=== PATIENT | female | born 1995 | race Caucasian/White ===

== ENCOUNTER → 2018-06-11 | Outpatient (CLI) | payer SELFPAY ==
--- NOTE | 2018-06-11 15:23 | RADIOLOGY REPORT (SQ) ---
EXAM DESCRIPTION: U/S [id number] TRNABD 1GES W/ODOP COMPLETED DATE/TIME: 06/11/2018 2:29 pm REASON FOR STUDY: Z34.01 ENCNTR FOR SUPRVSN OF NORMAL FIRST PREG, FIRST TRIMESTER Z34.01 ENCNTR FOR SUPRVSN OF NORMAL FIRST PREG, FIRST TRIMES COMPARISON: None. TECHNIQUE: Transabdominal static and realtime grayscale images acquired of the pelvis. Additional se lected spectral and color Doppler images recorded. All images stored on PACs. bHCG: Not available. CLINICAL DATES: LMP 04/21/2018. 7 weeks 2 days. LIMITATIONS: None. FINDINGS: FETUS: Single Living intrauterine . ULTRASOUND EGA: 7 weeks 4 days. ULTRASOUND TOM: 01/24/2019 EFW: Not applicable less than 20 weeks. CRL: 1.3 cm. FHR: 145 beats per minute. SURVEY: Too early to assess. AMNIOTIC FLUID: Adequate amount. PLACENTA: Not yet developed due to early gestation. SUBCHORIONIC BLEED: No SIZE OF BLEED: Not applicable. UTERUS: No masses. No anomalies. CERVICAL LENGTH: 3.4 cm. Closed. RIGHT ADNEXA: Ovary not seen. No adnexal free fluid. No adnexal masses. LEFT ADNEXA: Ovary not seen. No adnexal free fluid. No adnexal masses. FREE FLUID: None. OTHER: No other significant finding. IMPRESSION: LIVING INTRAUTERINE . EGA 7 weeks 4 days. Trimester of : First - 0 to 13 weeks. TECHNICAL DOCUMENTATION: JOB ID: [id number] [employer]- All Rights Reserved Reading location - IP/workstation name: [email or web address]
== END ==
LOC: RAD 16:29
PROVIDERS: ATTEND Midwife
DX: Z34.01 Encounter for supervision of normal first pregnancy, first trimester (principal)
CPT/HCPCS: 76801

== ENCOUNTER 2019-01-18 12:03 | Outpatient (CLI) | payer MEDICAID ==
[2019-01-18 12:31] LABS: APPEARANCE,URINE CLOUDY; BILIRUBIN,URINE NEGATIVE (NEGATIVE); COLOR,URINE YELLOW; GLUCOSE, URINE NEGATIVE (NEGATIVE); KETONES,URINE NEGATIVE (NEGATIVE); LEUKOCYTE ESTERASE,URINE LARGE (NEGATIVE); NITRITE,URINE NEGATIVE (NEGATIVE); PROTEIN,URINE NEGATIVE (NEGATIVE); URINE SPECIFIC GRAVITY 1.006; UROBILINOGEN,URINE NEGATIVE mg/dL (<2.0)
[2019-01-18 12:54] LABS: URINE AMPHETAMINES SCREEN NEGATIVE; URINE BARBITURATES SCREEN NEGATIVE; URINE BENZODIAZEPINES SCREEN NEGATIVE; URINE COCAINE SCREEN NEGATIVE; URINE MARIJUANA (THC) SCREEN NEGATIVE; URINE METHADONE SCREEN NEGATIVE; URINE PHENCYCLIDINE SCREEN NEGATIVE
--- NOTE | 2019-01-18 13:03 | Non Stress Test Report ---
Non Stress Test Datetime Report Generated by CPN: 01/18/2019 13:02 DEMOGRAPHIC EGA NST: 39.1 INDICATION Indication for Study: Other - Please document "Reason for NST Other" in box below. Indication for Study (NST) Other: labor check- suspected rupture of membranes VITAL SIGNS Temperature - NST: 98.6 Pulse - NST: 84 RESP - NST: 18 NBPSYS NST: 134 NBPDIA NST: 82 MONITORING Monitor Explained: Monitor Explained; Test Explained; Patient Verbalized Understanding Time on Monitor: 01/18/2019 12:16 Time off Monitor: 01/18/2019 12:50 NST Duration: 34 NST INTERVENTIONS NST Interventions: None Physician Notified NST: J. Akhtar, CNM BABY A: [id number] BABY A Movement : Present Contraction Frequency : 0 FHR Baseline : 145 Accelerations : 15X15 Decelerations : None Variability : Moderate 6-25bpm NST Review: Meets Criteria for Reactive NST NST Review and Verified By : López Galeano RN NST Results: Reactive NST REPORT Report Trigger: Send Report
== END 2019-01-18 12:59 | disposition home or self-care (01) ==
LOC: LC 12:03
PROVIDERS: ATTEND Student in an Organized Health Care Education/Training Program
PROC: 4A1HXCZ Monitoring of Products of Conception, Cardiac Rate, External Approach (ICD-10-PCS; principal; 2019-01-18)
DX: O47.1 False labor at or after 37 completed weeks of gestation (principal); Z3A.39 39 weeks gestation of pregnancy
CPT/HCPCS: 59025; 80307; 81005; 84112

== ENCOUNTER 2019-01-22 04:02 | Inpatient (IN) | payer MEDICAID ==
[2019-01-22 04:36] LABS: APPEARANCE,URINE SLIGHTLY-CLOUDY; BILIRUBIN,URINE NEGATIVE (NEGATIVE); COLOR,URINE YELLOW; GLUCOSE, URINE NEGATIVE (NEGATIVE); KETONES,URINE NEGATIVE (NEGATIVE); LEUKOCYTE ESTERASE,URINE MODERATE (NEGATIVE); NITRITE,URINE NEGATIVE (NEGATIVE); PROTEIN,URINE NEGATIVE (NEGATIVE); URINE SPECIFIC GRAVITY 1.014; UROBILINOGEN,URINE NEGATIVE mg/dL (<2.0)
[2019-01-22 04:55] LABS: URINE AMPHETAMINES SCREEN NEGATIVE; URINE BARBITURATES SCREEN NEGATIVE; URINE BENZODIAZEPINES SCREEN NEGATIVE; URINE COCAINE SCREEN NEGATIVE; URINE MARIJUANA (THC) SCREEN NEGATIVE; URINE METHADONE SCREEN NEGATIVE; URINE PHENCYCLIDINE SCREEN NEGATIVE
[2019-01-22 05:36] LABS: ABSOLUTE BASOPHILS # (AUTO) 0.1 10^3/uL (0.0-0.2); ABSOLUTE EOSINOPHILS # (AUTO) 0.1 10^3/uL (0.0-0.6); ABSOLUTE LYMPHOCYTES (AUTO) 2.2 10^3/uL (0.5-4.7); ABSOLUTE MONOCYTES (AUTO) 1.2 10^3/uL (0.1-1.4); ABSOLUTE NEUT (AUTO) 10.9 10^3/uL (1.7-8.2); BASOPHILS % (AUTO) 0.4 % (0-2); HEMATOCRIT 39.2 % (36.0-47.0); HEMOGLOBIN 13.2 g/dL (12.0-15.5); LYMPHOCYTES % (AUTO) 14.9 % (13-45); MEAN CORPUSCULAR HEMOGLOBIN 32.1 pg (27.0-33.4); MEAN CORPUSCULAR HGB CONC 33.7 g/dL (32.0-36.0); MEAN CORPUSCULAR VOLUME 95 fl (80-97); PLATELET COUNT 238 10^3/uL (150-450); RED BLOOD COUNT 4.12 10^6/uL (3.72-5.28); RED CELL DISTRIBUTION WIDTH 13.1 % (11.5-14.0); SEGMENTED NEUTROPHILS % (AUTO) 75.7 % (42-78); TOTAL CELLS COUNTED % (AUTO) 100 %; WHITE BLOOD COUNT 14.4 10^3/uL (4.0-10.5)
[2019-01-22] MEDS ORDERED: OXYTOCIN/NORMAL SALINE 20 UNIT/1,000 ML RTUINJ IV PRN ×2 (06:56→22:28)
[2019-01-22] MEDS ORDERED: RINGERS SOLUTION,LACTATED 1,000 ML IV ONE (07:30)
[2019-01-22] MEDS ORDERED: CEFAZOLIN INJ 1 GM VIAL ONE ×3 (07:31→19:01)
[2019-01-22] MEDS ORDERED: OXYTOCIN 10 UNIT/ML VIAL ONE (07:41)
[2019-01-22] MEDS ORDERED: MISOPROSTOL 0.2 MG TABLET ONE (07:41)
[2019-01-22] MEDS ORDERED: LIDOCAINE 1% INJ-PF (10 MG/ML) 30 ML SDV ONE (07:42)
[2019-01-22] MEDS ORDERED: OXYTOCIN/NORMAL SALINE 20 UNIT/1,000 ML RTUINJ ONE (07:42)
[2019-01-22] MEDS ORDERED: FENTANYL/BUPIVACAINE/NS/PF 300 MCG/150 ML RTUINJ EPI ONE (07:43)
[2019-01-22] MEDS ORDERED: FENTANYL CITRATE INJ/PF 100 MCG/2 ML AMPUL ONE (07:43)
[2019-01-22] MEDS ORDERED: BUPIVACAINE HCL 0.25 % INJ/PF (2.5 MG/1 ML) 30 ML VIAL ONE (07:43)
[2019-01-22] MEDS ORDERED: PHENYLEPHRINE HCL INJ/PF 10 MG/1 ML SDV ONE (07:43)
[2019-01-22] MEDS ORDERED: EPHEDRINE SULFATE INJ 50 MG/1 ML AMPULE ONE (07:44)
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
[2019-01-22] MEDS ORDERED: CEFAZOLIN 2 GM/D5W RTU 2 GM/50 ML RTUPB IV SCH (08:00)
[2019-01-22] MEDS: RINGERS SOLUTION,LACTATED 1,000 ML IV PRN ×2 (10:10→18:11)
--- NOTE | 2019-01-22 10:24 | Operative Report ---
Operative Report DATE OF SURGERY: 01/22/19 PREOPERATIVE DIAGNOSIS: Left Bartholin abscess POSTOPERATIVE DIAGNOSIS: Same OPERATION: Excision and drainage of left Bartholin abscess SURGEON: DEJA CHAVARRIA ANESTHESIA: Epidural TISSUE REMOVED OR ALTERED: Left ankle abscess incised and drained COMPLICATIONS: None QUANTITATIVE BLOOD LOSS: 5 INTRAOPERATIVE FINDINGS: Left Bartholin gland abscess measuring approximately 4 x 4 cm PROCEDURE: The patient was placed in a lithotomy position in which the left Bartholin gland abscess was palpated. It was noted to be approximately 4 x 4 cm. The area was then cleaned with Betadine x3. The abscess cavity was palpated and an 11 blade was used to incise the abscess. The patient is here for labor secondary to spontaneous rupture of membranes. She received her epidural, therefore no local anesthesia was necessary. Approximately 10 mL's of purulent fluid was extracted from the cavity. The abscess cavity was substantially decompressed. Patient was given 2 g of Ancef prior to the start of the procedure. Patient tolerated the procedure well.
[2019-01-22] MEDS ORDERED: ONDANSETRON HCL INJ/PF 4 MG/2 ML SDV IV ONE (12:16)
[2019-01-22] MEDS ORDERED: ONDANSETRON HCL INJ/PF 4 MG/2 ML SDV ONE (12:21)
[2019-01-22] MEDS: CEFAZOLIN SODIUM 2 GM in DEXTROSE 5%-WATER 100 ML IV SCH ×2 (12:45→19:03)
--- NOTE | 2019-01-22 15:23 | Warning Signs in Babies ---
VOD Warning Signs Datetime Report Generated by CPN: 01/22/2019 15:23 VOD#[id number] -Warning Signs in Babies: Viewed with Parent(s)/Family (01/22/2019 15:22:Sanchez Westfall RN)
[2019-01-22] MEDS ORDERED: PROMETHAZINE HCL INJ 25 MG/1 ML VIAL ONE (18:02)
[2019-01-22] MEDS ORDERED: ACETAMINOPHEN 325 MG TABLET PO ONE (21:36)
[2019-01-22] MEDS ORDERED: ACETAMINOPHEN 325 MG TABLET ONE (21:38)
[2019-01-22] MEDS ORDERED: ACETAMINOPHEN WITH CODEINE #3 TABLET PO PRN ×2 (22:28)
[2019-01-22] MEDS ORDERED: ZOLPIDEM TARTRATE 5 MG TABLET PO PRN (22:28)
[2019-01-22] MEDS ORDERED: MEASLES,MUMPS&RUBELLA VACC/PF 0.5 ML VIAL SUBCUT PRN (22:28)
[2019-01-22] MEDS ORDERED: DIBUCAINE 1% OINTMENT 56 GM TP PRN (22:28)
[2019-01-22] MEDS ORDERED: BENZOCAINE/MENTHOL AEROSOL SPRAY 56 ML TOP PRN (22:28)
[2019-01-22] MEDS ORDERED: DIPH/PERTUSS(ACELL)/TETANUS VAC/PF 0.5 ML SYR (>=10YO) IM PRN (22:28)
--- NOTE | 2019-01-23 03:01 | Delivery Summary ---
Del Sum A-C Datetime Report Generated by CPN: 01/23/2019 03:01 DELIVERY PERSONNEL DELIVERY PERSONNEL: [id number] Delivery Doctor:: Lexis Kulkarni MD Labor and Delivery Nurse:: Minda Pizano RNshading painter Nurse:: Isabell Lomeli RN Relay Engineer/MEDICAL OFFICE SUPERVISOR: Danuta Blancas, ST MATERNAL INFORMATION Delivery Anesthesia: Epidural Medications After Delivery: Pitocin Drip 20 Units/1000ml NSS Delivery QBL: 400 Delivery QBL Comment: Unable to accurately calculate recovery QBL d/t pt urinating on pads that needed to be weighed. Maternal Complications: Maternal Fever Provider Comments: of a viable male at 2200 w/ an OA with nuchal cord x 1 and left compund hand presentation; APGARS 8, 9; 2nd deg midline vag lac LABOR SUMMARY EDC: 01/24/2019 00:00 No. Babies in Womb: 1 Attempted: No Labor Anesthesia: Epidural LABOR INFORMATION Reason for Induction: Not Applicable Onset of Labor: 01/22/2019 05:13 Complete Dilatation: 01/22/2019 20:38 Oxytocin: Augmentation Group B Beta Strep: Negative Antibiotics # of Doses: 0 Antibiotics Time of Last Dose: N/A Name of Antibiotic Given: N/A Steroids Given: None Reason Steroids Not Administered: Not Applicable MEMBRANES Membranes Rupture Method: Spontaneous Rupture of Membranes: 01/22/2019 03:00 Length of Rupture (hr): 19.00 Amniotic Fluid Color: Clear Amniotic Fluid Amount: Small Amniotic Fluid Odor: None STAGES OF LABOR Stage 1 hr: 15 Stage 1 min: 25 Stage 2 hr: 1 Stage 2 min: 22 Stage 3 hr: 0 Stage 3 min: 5 Total Time in Labor hr: 16 Total Time in Labor min: 52 VAGINAL DELIVERY Episiotomy: None Laceration #1: Vaginal Laceration Extension #1: Second Degree Laceration Repair: Yes Laceration Repair Note: 2nd degree midline vaginal lac repaired with 2-0 vicryl Sponge Count Correct: Yes Sharps Count Correct: Yes CSECTION DELIVERY Primary Indication: N/A Secondary Indication: N/A CSection Incidence: N/A Labor: N/A Elective: N/A CSection Incision: N/A BABY A INFORMATION Infant Delivery Date/Time: 01/22/2019 22:00 Method of Delivery: Vaginal Born in Route : No : N/A Forceps: N/A Vacuum Extraction: N/A Shoulder Dystocia : No PRESENTATION/POSITION BABY A Presentation: Cephalic Cephalic Presentation: Vertex Vertex Position: Occipital Anterior Breech Presentation: N/A PLACENTA INFORMATION BABY A Placenta Delivery Time : 01/22/2019 22:05 Placenta Method of Delivery: Spontaneous Placenta Status: Delivered SCORES BABY A Heart Rate 1 min: >100 bpm Resp Effort 1 min: Good Cry Reflex Irritability 1 min: Cough or Sneeze or Pulls Away Muscle Tone 1 min: Active Motion Color 1 min: Body [place], Extremities Blue Resuscitation Effort 1 min: Tactile Stimulation SCORE 1 MIN: 9 Heart Rate 5 min: >100 bpm Resp Effort 5 min: Good Cry Reflex Irritability 5 min: Cough or Sneeze or Pulls Away Muscle Tone 5 min: Active Motion Color 5 min: Body [place], Extremities Blue Resuscitation Effort 5 min: Tactile Stimulation SCORE 5 MIN: 9 INFANT INFORMATION BABY A Gestational Age at Delivery: 39.5 Gestational Status: Full Term- 39- 40.6 Weeks Infant Outcome : Liveborn Condition : Stable Sex: Male IDENTIFICATION BABY A Verification Date/Time: 01/22/2019 22:34 ID Band Number: [id number] Mother's Name Verified: Yes RN Verifying Infant: B. Ring _ Kathy Lomeli WEIGHT/LENGTH BABY A Infant Birthweight (gm): 3409 Infant Weight (lb): 7 Weight (oz): 8 Length (in): 21.00 Infant Length (cm): 53.34 CORD INFORMATION BABY A No. Cord Vessels: 2 Nuchal Cord : Around Neck x1, Tight Cord Blood Taken: Yes-For Eval (Mom's Blood Type - or O+) Suction: None ASSESSMENT BABY A Infant Complications: Multiple Variable Decels Physical Findings at Delivery: Molding of the Head Physical Findings- Other: Left compound hand Infant Respirations: Appears Normal Skin to Skin: Yes Skin to Skin Time (min): 20 Spring Floor Service Worker/ALS Called : No Care By: Kathy Lomeli RN Transferred To: Remains with Mother BABY B INFORMATION : N/A SIGNATURES Signature: with User ID: [email or web address]
[2019-01-23] MEDS: IBUPROFEN 800 MG TABLET PO SCH ×3 (05:22→21:13)
[2019-01-23 06:55] LABS: HEMOGLOBIN 11.9 g/dL (12.0-15.5); MEAN CORPUSCULAR HEMOGLOBIN 32.2 pg (27.0-33.4); MEAN CORPUSCULAR HGB CONC 33.9 g/dL (32.0-36.0); MEAN CORPUSCULAR VOLUME 95 fl (80-97); PLATELET COUNT 208 10^3/uL (150-450); RED BLOOD COUNT 3.69 10^6/uL (3.72-5.28); RED CELL DISTRIBUTION WIDTH 13.2 % (11.5-14.0); WHITE BLOOD COUNT 16.8 10^3/uL (4.0-10.5)
--- NOTE | 2019-01-23 08:56 | PDOC PROGRESS REPORT ---
Subjective-OB Progress Note for:: 01/23/19 Subjective: Doing well, , feels tired, ambulating, scant lochia, hsb at BS Physical Exam (OB) Vital Signs: Intake & Output 01/22/19 01/23/19 01/24/19 06:59 06:59 06:59 Intake Total 2500 Balance 2500 Weight 150 kg 68.039 kg - PIH/Pre-Eclampsia DTR's: 2 + Clonus: Negative Headache: Absent Epigastric Pain: No Visual Changes: No - Lochia Lochia Amount: Small 10-25 ml Lochia Color: Rubra/Red - Abdomen Description: Soft Hernia Present: No Fundal Description: Firm, Midline Fundal Height: u/3 - u/4 Objective-Diagnostic Laboratory: 01/23/19 06:01 01/23/19 06:01 WBC 16.8 H RBC 3.69 L Hgb 11.9 L Hct 35.0 L MCV 95 MCH 32.2 MCHC 33.9 RDW 13.2 Plt Count 208 Assessment and Plan(PN) - Assessment and Plan (1) Vaginal delivery Is this a current diagnosis for this admission?: Yes (2) Obstetrical laceration, second degree Is this a current diagnosis for this admission?: Yes (3) Cyst of left Bartholin's gland Is this a current diagnosis for this admission?: Yes (4) Premature rupture of membranes Qualifiers: PROM onset of labor timing: onset of labor within 24 hours of rupture Is this a current diagnosis for this admission?: Yes - Time Spent with Patient Time with patient: Less than 15 minutes Medications reviewed and adjusted accordingly: Yes - Disposition Anticipated Discharge: Home Within: within 24 hours
[2019-01-23] MEDS: CEFAZOLIN SODIUM 2 GM in DEXTROSE 5%-WATER 100 ML IV SCH (09:57)
[2019-01-23] MEDS: PRENATAL VITAMIN W DHA CAPSULE PO SCH (10:47)
[2019-01-23] MEDS: SENNOSIDES/DOCUSATE 8.6-50 MG 1 EACH TABLET PO SCH (10:47)
[2019-01-23] MEDS: DOCUSATE SODIUM 100 MG CAPSULE PO SCH ×2 (10:47→17:00)
[2019-01-23] MEDS: FERROUS SULFATE 325 MG TABLET PO SCH ×2 (10:47→17:00)
[2019-01-24] MEDS: IBUPROFEN 800 MG TABLET PO SCH (06:11)
[2019-01-24 08:14] VITALS: BP 110/51
[2019-01-24] MEDS: FERROUS SULFATE 325 MG TABLET PO SCH (09:18)
[2019-01-24] MEDS: PRENATAL VITAMIN W DHA CAPSULE PO SCH (09:18)
[2019-01-24] MEDS: DOCUSATE SODIUM 100 MG CAPSULE PO SCH (09:18)
[2019-01-24] MEDS: SENNOSIDES/DOCUSATE 8.6-50 MG 1 EACH TABLET PO SCH (09:18)
--- NOTE | 2019-01-24 10:17 | PDOC PROGRESS REPORT ---
Subjective-OB Progress Note for:: 01/24/19 Subjective: Doing well, no c/o, ready to go home, hsb at BS, , voiding, ambulating Physical Exam (OB) Vital Signs: Temp Pulse Resp BP Pulse Ox 98.2 F 65 16 110/51 L 98 01/24/19 07:33 01/24/19 07:33 01/24/19 07:33 01/24/19 07:33 01/24/19 07:33 Intake & Output 01/23/19 01/24/19 01/25/19 06:59 06:59 06:59 Intake Total 2500 3100 Balance 2500 3100 Weight 68.039 kg - PIH/Pre-Eclampsia DTR's: 1 + Clonus: Negative Headache: Absent Epigastric Pain: No Visual Changes: No - Lochia Lochia Amount: Scant < 10 ml Lochia Color: Rubra/Red - Abdomen Description: Tender, Soft Hernia Present: No Fundal Description: Firm, Midline Fundal Height: u/u - u/2 Objective-Diagnostic Laboratory: 01/23/19 06:01 Assessment and Plan(PN) - Assessment and Plan (1) Vaginal delivery Is this a current diagnosis for this admission?: Yes (2) Obstetrical laceration, second degree Is this a current diagnosis for this admission?: Yes (3) Cyst of left Bartholin's gland Is this a current diagnosis for this admission?: Yes (4) Premature rupture of membranes Qualifiers: PROM onset of labor timing: onset of labor within 24 hours of rupture Is this a current diagnosis for this admission?: Yes - Time Spent with Patient Time with patient: Less than 15 minutes Medications reviewed and adjusted accordingly: Yes - Disposition Anticipated Discharge: Home Within: within 24 hours
--- NOTE | 2019-01-24 10:22 | PDOC DISCHARGE SUMMARY ---
Impression - Admit/DC Date/PCP Admission Date/Primary Care Provider: 01/22/19 05:06 MELISA ALVARADO MD Discharge Date: 01/24/19 - Discharge Diagnosis (1) Vaginal delivery Is this a current diagnosis for this admission?: Yes (2) Obstetrical laceration, second degree Is this a current diagnosis for this admission?: Yes (3) Cyst of left Bartholin's gland Is this a current diagnosis for this admission?: Yes (4) Premature rupture of membranes Is this a current diagnosis for this admission?: Yes - Additional Information Discharge Diet: As Tolerated, Regular Discharge Activity: Activity As Tolerated, No Lifting Over 10 Pounds, No Lifting/Push/Pulling, Pelvic Rest Referrals: MELISA ALVARAOD MD [Primary Care Provider] - (RTC 3 weeks) Home Medications: Pnv No.95/Ferrous Fum/Folic AC [ Caplet] 1 tab PO DAILY 11/02/18 HPI Gestational Age: 39.5 Reason(s) for Admission: PROM Admission Note: augmented with Pitocin Procedures: NST, Ultrasound Intrapartum Procedure(s): Spontaneous Vaginal Delivery Complication(s): Laceration-Perineal Laceration-Degree: 2nd - apgars 8/9, male, wt 7-8 Hospital Course Hospital Course: routine Results Laboratory Results: WBC 16.8 10^3/uL (4.0-10.5) H 01/23/19 06:01 RBC 3.69 10^6/uL (3.72-5.28) L 01/23/19 06:01 Hgb 11.9 g/dL (12.0-15.5) L 01/23/19 06:01 Hct 35.0 % (36.0-47.0) L 01/23/19 06:01 MCV 95 fl (80-97) 01/23/19 06:01 MCH 32.2 pg (27.0-33.4) 01/23/19 06:01 MCHC 33.9 g/dL (32.0-36.0) 01/23/19 06:01 RDW 13.2 % (11.5-14.0) 01/23/19 06:01 Plt Count 208 10^3/uL (150-450) 01/23/19 06:01 Lymph % (Auto) 14.9 % (13-45) 01/22/19 05:23 [place] % (Auto) 8.0 % (3-13) 01/22/19 05:23 Eos % (Auto) 1.0 % (0-6) 01/22/19 05:23 Baso % (Auto) 0.4 % (0-2) 01/22/19 05:23 Absolute Neuts (auto) 10.9 10^3/uL (1.7-8.2) H 01/22/19 05:23 Absolute Lymphs (auto) 2.2 10^3/uL (0.5-4.7) 01/22/19 05:23 Absolute Monos (auto) 1.2 10^3/uL (0.1-1.4) 01/22/19 05:23 Absolute Eos (auto) 0.1 10^3/uL (0.0-0.6) 01/22/19 05:23 Absolute Basos (auto) 0.1 10^3/uL (0.0-0.2) 01/22/19 05:23 Seg Neutrophils % 75.7 % (42-78) 01/22/19 05:23 Urine Color YELLOW 01/22/19 04:00 Urine Appearance SLIGHTLY-CLOUDY 01/22/19 04:00 Urine pH 6.0 (5.0-9.0) 01/22/19 04:00 Ur Specific [place] 1.014 01/22/19 04:00 Urine Protein NEGATIVE mg/dL (NEGATIVE) 01/22/19 04:00 Urine Glucose (UA) NEGATIVE mg/dL (NEGATIVE) 01/22/19 04:00 Urine Ketones NEGATIVE mg/dL (NEGATIVE) 01/22/19 04:00 Urine Blood NEGATIVE (NEGATIVE) 01/22/19 04:00 Urine Nitrite NEGATIVE (NEGATIVE) 01/22/19 04:00 Urine Bilirubin NEGATIVE (NEGATIVE) 01/22/19 04:00 Urine Urobilinogen NEGATIVE mg/dL (<2.0) 01/22/19 04:00 Ur Leukocyte Esterase MODERATE (NEGATIVE) H 01/22/19 04:00 Urine Ascorbic Acid NEGATIVE (NEGATIVE) 01/22/19 04:00 Membranes Rupture POSITIVE (NEGATIVE) H 01/22/19 04:00 Urine Opiates Screen NEGATIVE 01/22/19 04:00 Urine Methadone Screen NEGATIVE 01/22/19 04:00 Ur Barbiturates Screen NEGATIVE 01/22/19 04:00 Ur Phencyclidine Scrn NEGATIVE 01/22/19 04:00 Ur Amphetamines Screen NEGATIVE 01/22/19 04:00 U Benzodiazepines Scrn NEGATIVE 01/22/19 04:00 Urine Cocaine Screen NEGATIVE 01/22/19 04:00 U Marijuana (THC) Screen NEGATIVE 01/22/19 04:00 RPR NONREACTIVE (NONREACTIVE) 01/22/19 05:23 Blood Type O POSITIVE 01/22/19 05:23 Antibody Screen NEGATIVE 01/22/19 05:23 Plan Health Concerns: routine Plan of Treatment: usual PP course Goals: routine, repeat CBC today Time Spent: Less than 30 Minutes
[2019-01-24 11:24] LABS: HEMATOCRIT 34.6 % (36.0-47.0); HEMOGLOBIN 11.7 g/dL (12.0-15.5); MEAN CORPUSCULAR HEMOGLOBIN 32.2 pg (27.0-33.4); MEAN CORPUSCULAR HGB CONC 33.9 g/dL (32.0-36.0); MEAN CORPUSCULAR VOLUME 95 fl (80-97); PLATELET COUNT 220 10^3/uL (150-450); RED BLOOD COUNT 3.65 10^6/uL (3.72-5.28); RED CELL DISTRIBUTION WIDTH 13.3 % (11.5-14.0); WHITE BLOOD COUNT 15.4 10^3/uL (4.0-10.5)
== END 2019-01-24 13:13 | disposition home or self-care (01) | DRG 806 ==
LOC: LC 04:02 → LR 05:06 → 2S 23:49
PROVIDERS: ADMIT Student in an Organized Health Care Education/Training Program; ATTEND Student in an Organized Health Care Education/Training Program
PROC: 10E0XZZ Delivery of Products of Conception, External Approach (ICD-10-PCS; principal; 2019-01-22)
PROC: 0KQM0ZZ Repair Perineum Muscle, Open Approach (ICD-10-PCS; 2019-01-22)
PROC: 0U9LXZZ Drainage of Vestibular Gland, External Approach (ICD-10-PCS; 2019-01-22)
DX: O42.02 Full-term premature rupture of membranes, onset of labor within 24 hours of rupture (principal); O75.2 Pyrexia during labor, not elsewhere classified; Z37.0 Single live birth; O26.893 Other specified pregnancy related conditions, third trimester; O70.1 Second degree perineal laceration during delivery; N75.0 Cyst of Bartholin's gland; O32.6XX0 Maternal care for compound presentation, not applicable or unspecified; O69.1XX0 Labor and delivery complicated by cord around neck, with compression, not applicable or unspecified; Z3A.39 39 weeks gestation of pregnancy; Z88.0 Allergy status to penicillin
CPT/HCPCS: 36415; 80307; 81005; 84112; 85025; 85027; 86592; 86850; 86900; 86901; 90715; J0690; J2370; J2405; J2550; J2590; J3010; J3490; J7060

== ENCOUNTER 2020-03-02 10:36 | Emergency (ER) | payer MEDICAID ==
--- NOTE | 2020-03-02 11:04 | ER Document Report ---
ED Medical Screen (RME) - General Chief Complaint: Back Pain Stated Complaint: LOW BACK PAIN,ABDOMINAL PAIN Time Seen by Provider: 03/02/20 10:59 Primary Care Provider: WES GAITAN PA-C [Primary Care Provider] - Follow up as needed TRAVEL OUTSIDE OF THE [place] IN LAST 30 DAYS: No - HPI Notes: Patient is a 24-year-old female who is 6 weeks and presents with low back pain that began yesterday. Patient states the pain radiates to her lower abdomen on both sides which caused her to become concerned. She denies any vaginal bleeding, vaginal discharge, and vomiting. She has not yet had an ultrasound done by her OB. , P:1. Patient is O+ and rhogam was not indicated during her first . - Related Data Allergies/Adverse Reactions: Penicillins Allergy (Severe, Verified 01/18/19 12:33) Home Medications: prenatals Past Medical History - Social History Chew tobacco use (# tins/day): No Frequency of alcohol use: None Drug Abuse: None Past Surgical History: Reports: Hx Tonsillectomy - Immunizations Immunizations up to date: Yes Hx Diphtheria, Pertussis, Tetanus Vaccination: Yes Physical Exam - Vital signs Vitals: Temp Pulse Resp BP Pulse Ox 98.0 F 94 18 140/74 H 100 03/02/20 10:42 03/02/20 10:42 03/02/20 10:42 03/02/20 10:42 03/02/20 10:42 - Abdominal Tenderness: Nontender - Back Back: Nontender Course - Re-evaluation Re-evalutation: I have greeted and performed a rapid initial assessment of this patient. A comprehensive ED assessment and evaluation of the patient, analysis of test results and completion of medical decision making process will be conducted by an additional ED providers. - Vital Signs Vital signs: Temp Pulse Resp BP Pulse Ox 98.0 F 94 18 140/74 H 100 03/02/20 10:42 03/02/20 10:42 03/02/20 10:42 03/02/20 10:42 03/02/20 10:42 Doctor's Discharge - Discharge Referrals: WES GAITAN PA-C [Primary Care Provider] - Follow up as needed
[2020-03-02 11:31] LABS: ABSOLUTE BASOPHILS # (AUTO) 0.1 10^3/uL (0.0-0.2); ABSOLUTE EOSINOPHILS # (AUTO) 0.1 10^3/uL (0.0-0.6); ABSOLUTE LYMPHOCYTES (AUTO) 2.7 10^3/uL (0.5-4.7); ABSOLUTE MONOCYTES (AUTO) 0.7 10^3/uL (0.1-1.4); ABSOLUTE NEUT (AUTO) 5.5 10^3/uL (1.7-8.2); BASOPHILS % (AUTO) 0.7 % (0-2); EOSINOPHILS % (AUTO) 1.4 % (0-6); HEMATOCRIT 42.1 % (36.0-47.0); HEMOGLOBIN 14.5 g/dL (12.0-15.5); LYMPHOCYTES % (AUTO) 29.8 % (13-45); MEAN CORPUSCULAR HEMOGLOBIN 31.2 pg (27.0-33.4); MEAN CORPUSCULAR HGB CONC 34.5 g/dL (32.0-36.0); MEAN CORPUSCULAR VOLUME 90 fl (80-97); MONOCYTES % (AUTO) 7.3 % (3-13); PLATELET COUNT 298 10^3/uL (150-450); RED BLOOD COUNT 4.66 10^6/uL (3.72-5.28); SEGMENTED NEUTROPHILS % (AUTO) 60.8 % (42-78); TOTAL CELLS COUNTED % (AUTO) 100 %; WHITE BLOOD COUNT 9.1 10^3/uL (4.0-10.5)
[2020-03-02 11:42] LABS: APPEARANCE,URINE SLIGHTLY-CLOUDY; BILIRUBIN,URINE NEGATIVE (NEGATIVE); COLOR,URINE YELLOW; GLUCOSE, URINE NEGATIVE (NEGATIVE); KETONES,URINE NEGATIVE (NEGATIVE); LEUKOCYTE ESTERASE,URINE SMALL (NEGATIVE); NITRITE,URINE NEGATIVE (NEGATIVE); PROTEIN,URINE NEGATIVE (NEGATIVE); URINE SPECIFIC GRAVITY 1.021; UROBILINOGEN,URINE NEGATIVE mg/dL (<2.0)
--- NOTE | 2020-03-02 12:18 | RADIOLOGY REPORT (SQ) ---
EXAM DESCRIPTION: U/S OB TRANSVAGINAL W/O DOP IMAGES COMPLETED DATE/TIME: 03/02/2020 11:36 am REASON FOR STUDY: back and abdominal pain COMPARISON: None. TECHNIQUE: Transvaginal static and realtime grayscale images acquired of the pelvis. Additional mateo cted spectral and color Doppler images recorded. All images stored on PACs. bHCG: Pending. CLINICAL DATES: LMP 01/19/2020 6 weeks 1 day LIMITATIONS: None. FINDINGS: FETUS: Single Living intrauterine . ULTRASOUND EGA: 5 weeks 2 days by questionable gestational sac size. ULTRASOUND TOM: 10/31/2020 EFW: Not applicable less than 20 weeks. CRL: pole is not seen. FHR: pole is not seen. Beats per minute. SURVEY: pole is not seen. AMNIOTIC FLUID: Adequate amount. PLACENTA: Not yet developed due to early gestation. SUBCHORIONIC BLEED: No SIZE OF BLEED: Not applicable. UTERUS: No masses. No anomalies. CERVICAL LENGTH: 2.4 cm Closed. RIGHT ADNEXA: Normal ovary with normal vascular flow. 2.7 x 2.3 x 2.3 cm. No adnexal free fluid. No adnexal masses. LEFT ADNEXA: Normal ovary with normal vascular flow. 2.4 x 1.9 x 1.2 cm. No adnexal free fluid. No adnexal masses. FREE FLUID: None. OTHER: No other significant finding. IMPRESSION: There appears to be an early intrauterine gestation of 5 weeks 2 days. pole is no t yet seen. Follow-up as clinically indicated. TECHNICAL DOCUMENTATION: JOB ID: [id number] [employer]- All Rights Reserved rev Reading location - IP/workstation name: [email or web address]
--- NOTE | 2020-03-02 12:27 | ER Document Report ---
ED General - General Chief Complaint: Back Pain Stated Complaint: LOW BACK PAIN,ABDOMINAL PAIN Time Seen by Provider: 03/02/20 10:59 Primary Care Provider: WES GAITAN PA-C [Primary Care Provider] - Follow up as needed TRAVEL OUTSIDE OF THE [place] IN LAST 30 DAYS: No - HPI Notes: Patient is a 24-year-old female who presents to the emergency department for evaluation of low back pain with radiation to her inguinal region and down her right leg. She states it started yesterday. It is a sharp and aching pain. Is worsened with movement and position. Is worsened when she lays on her right side. She states that the pain went down into her right leg and the right side of her foot went numb yesterday. She denies any bowel or bladder incontinence, no saddle anesthesia, no focal numbness or weakness. She denies any vaginal bleeding. This is her second , her first was uncomplicated. [facility]. - Related Data Allergies/Adverse Reactions: Penicillins Allergy (Severe, Verified 01/18/19 12:33) Home Medications: prenatals Past Medical History - General Information source: Patient - Social History Smoking Status: Never Smoker Chew tobacco use (# tins/day): No Frequency of alcohol use: None Drug Abuse: None Family History: Reviewed & Not Pertinent, CAD, Hypertension Past Surgical History: Reports: Hx Tonsillectomy - Immunizations Immunizations up to date: Yes Hx Diphtheria, Pertussis, Tetanus Vaccination: Yes Review of Systems - Review of Systems Constitutional: No symptoms reported EENT: No symptoms reported Cardiovascular: No symptoms reported Respiratory: No symptoms reported Gastrointestinal: No symptoms reported Genitourinary: No symptoms reported Female Genitourinary: See HPI Musculoskeletal: See HPI Skin: No symptoms reported Neurological/Psychological: See HPI -: Yes All other systems reviewed and negative Physical Exam - Vital signs Vitals: Temp Pulse Resp BP Pulse Ox 98.0 F 94 18 140/74 H 100 03/02/20 10:42 03/02/20 10:42 03/02/20 10:42 03/02/20 10:42 03/02/20 10:42 - Notes Notes: Vital signs reviewed, please refer to chart. Head is normocephalic, atraumatic. Pupils equal round, reactive to light. Neck is supple without meningismus. Heart is regular rate and rhythm. Lungs are clear to auscultation bilaterally. Abdomen is soft, nontender, normoactive bowel sounds throughout. Examination of the spine yields no midline tenderness step-off. She has paraspinal musculature tenderness at about L5 and into the SI joints bilaterally, right greater than left. Right-sided piriformis tenderness noted, no left-sided piriformis tender ness. Negative straight leg raise bilaterally. Patellar and Achilles reflexes are +2 and +1, symmetrical bilaterally. Sensation is intact. Extremities without cyanosis, clubbing. Posterior calves are nontender. Peripheral pulses are equal. Skin is warm and dry. Patient is awake, alert, neurological exam is nonfocal. Course - Re-evaluation Re-evalutation: 03/02/20 12:26 Patient presents to the emergency department for evaluation. Her low back pain seems to be mechanical. She may have a touch of sciatica, likely secondary to the hormonal changes associated with . I explained this to the patient. I will start her on some low-dose Flexeril. Otherwise, she is not had any vaginal bleeding. Her ultrasound reveals intrauterine with gestational sac but no obvious pole. Given her measurements this is not necessarily concerning. I explained her that she will need to have another ultrasound. I am still waiting for her chemistry. Otherwise her urinalysis fails to show any signs of bleeding or infection. Her CBC is unremarkable. Awaiting chemistries. Assuming there is unremarkable as expected, patient will be sent home with Flexeril and close follow-up. She is amenable this plan. She is to return to the ED with worsening. 03/02/20 13:25 Chemistry unremarkable, beta positive. Disposition as previously mentioned. - Vital Signs Vital signs: Temp Pulse Resp BP Pulse Ox 98.0 F 94 18 140/74 H 100 03/02/20 10:42 03/02/20 10:42 03/02/20 10:42 03/02/20 10:42 03/02/20 10:42 - Laboratory Result Diagrams: 03/02/20 11:10 03/02/20 11:10 Laboratory results interpreted by me: 03/02/20 03/02/20 11:05 11:10 Sodium 136.2 L Beta HCG, Quant 2836.30 H Ur Leukocyte Esterase SMALL H - Diagnostic Test Radiology reviewed: Reports reviewed Radiology results interpreted by me: 03/02/20 12:27 Obstetrics Ultrasound 03/02/20 11:01 IMPRESSION: There appears to be an early intrauterine gestation of 5 weeks 2 days. pole is not yet seen. Follow-up as clinically indicated. Discharge - Discharge Clinical Impression: Sciatica Low back pain Qualifiers: Chronicity: acute Back pain laterality: bilateral Sciatica presence: with sciatica Sciatica laterality: sciatica of right side Qualified Code(s): M54.41 - Lumbago with sciatica, right side Condition: Stable Disposition: HOME, SELF-CARE Instructions: Low Back Pain ([facility]), Sciatica ([facility]) Additional Instructions: 1/2 to 1 tablet Flexeril up to 3 times daily as needed. Please watch for drowsiness with this medication. Tylenol as needed for moderate pain. Follow- up with your primary care provider as well as OB. Return to the emergency department with worsening or new concerning symptoms of any sort. Referrals: WES GAITAN PA-C [Primary Care Provider] - Follow up as needed
[2020-03-02 12:48] LABS: ALBUMIN 4.5 g/dL (3.5-5.0); ALKALINE PHOSPHATASE 75 U/L (38-126); ANION GAP 8 (5-19); ASPARTATE AMINO TRANSFERASE 33 U/L (14-36); BILIRUBIN,DIRECT 0.1 mg/dL (0.0-0.4); BILIRUBIN,TOTAL 0.6 mg/dL (0.2-1.3); BLOOD UREA NITROGEN 14 mg/dL (7-20); CALCIUM 9.8 mg/dL (8.4-10.2); CARBON DIOXIDE 26 mmol/L (22-30); CHLORIDE 102 mmol/L (98-107); GLUCOSE 86 mg/dL (75-110); POTASSIUM 4.4 mmol/L (3.6-5.0); TOTAL PROTEIN 7.4 g/dL (6.3-8.2)
[2020-03-02 14:09] VITALS: BP 117/53
== END 2020-03-02 14:10 | disposition home or self-care (01) ==
LOC: ER 10:36
DX: O26.891 Other specified pregnancy related conditions, first trimester (principal); M54.41 Lumbago with sciatica, right side; M54.9 Dorsalgia, unspecified; R10.9 Unspecified abdominal pain; Z3A.01 Less than 8 weeks gestation of pregnancy; Z79.899 Other long term (current) drug therapy; Z88.0 Allergy status to penicillin
CPT/HCPCS: 36415; 76817; 80053; 81001; 84702; 85025; 99284